=== PATIENT | female | born 1950 | race Caucasian/White ===

== ENCOUNTER 2016-06-23 05:34 | Day surgery (SDC) | payer OTHER ==
[2016-06-23] VITALS (16 sets, daily range): BP systolic 118–154; BP diastolic 72–88; PULSE 58–87; RESP 12–17; O2SAT 94–100
[~2016-06-23] VITALS: Ht 160 cm; Wt 99.4 kg
[2016-06-23] MEDS: Lactated Ringer's 1,000 ML IV SCH ×4 (05:00→21:15)
[~2016-06-23 05:34] MED LIST: ASPI-973 PO; CHOL200047 PO; CeFAZolin Inj 2 GM in IV Premix 1 EACH IV ONE
[2016-06-23] MEDS ORDERED: Glycopyrrolate 0.2 MG/ML 1mL Inj ONE (05:35)
[2016-06-23] MEDS ORDERED: Rocuronium 10 mg/mL 5 mL Inj ONE (05:35)
[2016-06-23] MEDS ORDERED: HYDROmorphone 2 mg/mL Inj ONE (05:35)
[2016-06-23] MEDS ORDERED: fentaNYL-PF 50 mCg/mL 2 mL Inj ONE (05:35)
[2016-06-23] MEDS ORDERED: Dexamethasone 4 mg/mL Inj ONE (05:35)
[2016-06-23] MEDS ORDERED: Remifentanil 1 mg/3 mL Inj ONE (05:35)
[2016-06-23] MEDS ORDERED: Phenylephrine/NS 100 mCg/mL 10 mL Syringe IVPUSH ONE (05:35)
[2016-06-23] MEDS ORDERED: Propofol 10 mg/mL 20 mL Inj ONE (05:35)
[2016-06-23] MEDS ORDERED: MetoCLOpramide 5 mg/mL 2 mL Inj ONE (05:35)
[2016-06-23] MEDS ORDERED: Ondansetron 2 mg/mL 2 mL Inj ONE (05:35)
[2016-06-23] MEDS ORDERED: Neostigmine 1 mg/mL 10 mL Inj ONE (05:35)
[2016-06-23] MEDS ORDERED: CeFAZolin Inj 2 gm / 50mL D5W IV ONE (05:38)
[2016-06-23] MEDS ORDERED: Bupivacaine-MPF 0.25%/EPI 30 mL Inj INFILTRATE ONE (07:45)
[2016-06-23] MEDS ORDERED: Lactated Ringer's 1,000 ML IV SCH (08:47)
[2016-06-23] MEDS ORDERED: Lactated Ringer's 500 ML IV PRN (08:47)
--- NOTE | 2016-06-23 08:47 | PCM.HPANE ---
Patient Data Surgeon Admitting Provider: Attending Provider:Jessica Carson MD Primary Care Physician:Daniel Guthrie Other Provider:Azul Wright Anesthesia Reason for Visit Postmenopausal Bleeding, Endometrial Hyperplasia Ht/WT & BMI Height (Feet): 5 Height (Inches): 3.00 Weight (Kilograms): 96.5 Body Mass Index 37.00 Allergies Coded Allergies: codeine (Verified Allergy, Unknown, UNKNOWN, 12/06/15) Past Anesthesia History Anesthesia History: Denies:: Abnormal Airway, Anesthesia Reactions, Difficult Intubation, Fam Anesthesia Reaction, Fam Malignant Hypertherm, Malignant Hyperthermia Diabetes History Hx Diabetes?: No MRSA MRSA: No Medications Blood Thinner: Aspirin Home Meds Incl Beta Mag: No Reported Medications Cholecalciferol (Vitamin D3) (Vitamin D3)2,000 Unit Capsule2,000 Unit PO DAILY 06/19/16 Aspirin 81 Mg [id number] Mg PO DAILY Ref 0 06/19/16 Discontinued Reported Medications Aspirin 325 Mg [id number] Mg PO WEEKLY #1 BOTTLE 12/06/15 Multivitamin (Multivitamins)1 Each Capsule1 Each PO DAILY 12/06/15 History History of ENT Problems?: No HEENT History: Denies:: Abnormal Airway Cataracts Difficult Intubation Dysphagia Glaucoma Hearing Problem Sinus Problem TMJ Denture Type: None Teeth Condition: Within Normal Limits Hx of Heart Problems?: Yes Cardiovascular History: Positive for:: Edema (PEDAL-OCCAS.) Denies:: AICD Atrial Fibrillation Chest Pain Hypertension Pacemaker Thrombophlebitis (HX OF VARICOSITIES S/P VEIN STRIPPING) Valvular Heart Disease Hx of Respiratory Problem?: No Respiratory History: Denies:: Oxygen Administration Use of C-PAP Machine Hx Neurologic Problems?: No Neurological History: Denies:: CVA Multiple Sclerosis Parkinson's Disease Seizures Hx of GI Problems?: Yes Other GI Pertinent History: hx of umbilical hernia repair with mesh Hx of Problems?: No Genitourinary History: Denies:: Kidney Stones Urinary Tract Infection Female Hx: Denies:: Currently (post alexis) Endometriosis Problems with Breasts? Skin History: Denies:: History Skin Disorders? Pressure Ulcers Hx Musculoskeletal Problems?: No Musculoskeletal History: Denies:: Fibromyalgia Joint Replacement Musculoskeletal Trauma (prior hx of knee arthroscopy) Hx of Psycho/Social Problems?: No Hx Surgeries?: Yes (c sectionx5, vein stripping, umb hernia with mesh, knee scope) Hx Any Other Health Problems?: Yes Other History: Denies:: Cancer Endocrine Disease Hospitalization Thyroid Disease History Blood Transfusions: Denies:: Blood Transfusions Hx Diabetes: No Hx Alcohol Use: NoHx Substance Use: No Smoking Status: Never Smoker Have You Smoked inLast 12 mo: No Stop/Bang S-Snoring: Do You Snore Loudly: No T-Tired: feel tired, fatigued: No O-Obsered: Observed not breath: No P-Blood Pressure: treated: No B- Body Mass Index > 35 kg/m2: Yes A- Age over 50: Yes N- Neck Large Circumference: No G- Gender Male: No JUAN Total Score: 2 Risk Assessment Category Category 1A: Patient has history of documented sleep apnea, and HAS NOT received any narcotic, sedative or anesthesia administration during this stay. Category 1B: Patient has history of documented sleep apnea, and HAS received any narcotic , sedative or anesthesia administration during this stay Category 2: Patient has SUSPECTED Obstructive Sleep Apnea, and HAS received any narcotic , sedative or anesthesia administration during this stay. Category 3: Patient has SUSPECTED Obstructive Sleep Apnea and HAS NOT received narcotic, sedative or anesthesia administration during this stay. Category 4: Outpatient in Procedural Areas with known sleep apnea or who screen positive for High Risk via the STOP/BANG questionnaire. Exam Exam Vital Signs Vital Signs Date Time Temp Pulse Resp B/P Pulse Ox O2 Delivery O2 Flow Rate FiO2 06/23/16 06:02 36 87 14 139/84 96 Room Air General Appearance: Alert, Oriented X3, Cooperative, No Acute Distress HEENT/AIRWAY: MP 2, Neck Movement (FROM, large neck circumference), Mouth Opening (3 FBMO) Lungs: Clear to Auscultation, Normal Air Movement Heart: Exam Unremarkable, Regular Rate/Rhythm, No Murmurs/Rubs/Gallops Meds/Labs/Diagnostics Admission Meds Current Medications Lactated Ringer's (Lr) 1,000 ml @ 120 mls/hr Q8H20M IV Last administered on t 06:05; Start 06/23/16 at 05:00; Stop 06/23/16 at 13:19 Plan Impression Patient chart reviewed, patient interviewed and anesthestic plan with risks, benefits, and alternatives discussed, and informed consent obtained. NPO per Anesth. Guidelines: Yes ASA Physical Status: ASA2 Mod Systemic Disease Anesthetic Plan: GA Bene/Risks/Altern/Consents: Yes HP Complete Prior to Induction: Yes Other Pt wanted the option of going home tonight, so no duramorph spinal. Oliver Croft MD June 23, 2016 06:55
[2016-06-23] MEDS ORDERED: HYDROmorphone 1 mg/mL Inj IVPUSH PRN ×2 (08:50→12:50)
[2016-06-23] MEDS ORDERED: Atropine 0.4 mg/mL Inj IVPUSH PRN (08:50)
[2016-06-23] MEDS ORDERED: EPHEDrine Sulfate 50 mg/mL Inj IVPUSH PRN (08:50)
[2016-06-23] MEDS ORDERED: Ondansetron 2 mg/mL 2 mL Inj IVPUSH PRN ×3 (08:50→21:10)
[2016-06-23] MEDS ORDERED: fentaNYL-PF 50 mCg/mL 2 mL Inj IVPUSH PRN (08:50)
[2016-06-23] MEDS ORDERED: Labetalol 5 mg/mL 4 mL Inj IV PRN (08:50)
[2016-06-23] MEDS ORDERED: Phenylephrine 10,000 mCg/mL Inj IVPUSH PRN (08:50)
[2016-06-23] MEDS ORDERED: MetoCLOpramide 5 mg/mL 2 mL Inj IVPUSH PRN ×3 (08:50→21:10)
[2016-06-23] MEDS ORDERED: Lactated Ringer's 1,000 ML IV ONE ×2 (09:37→14:14)
[2016-06-23] MEDS ORDERED: oxyCODONE-Acetamin 5-325 mg Tablet PO PRN ×2 (12:50→21:15)
[2016-06-23] MEDS ORDERED: diphenhydrAMINE 25 mg Capsule PO PRN (12:50)
--- NOTE | 2016-06-23 12:56 | PCM.DIGYN ---
Surgical Discharge Instruction Dates of Hospitalization Date of Hospital Admission Providers Admitting Physician: Primary Care Physician: Daniel Guthrie Attending Physician: Jessica Carson MD Diet Discharge Diet: No restrictions Activity Discharge Activity-General: Try not to overdue, Balance rest and activity, No lifting >10 pounds for 4-6 weeks, No driving while taking narcotic, Other ( Pelvic rest x6 weeks) Dressing and Incisional Care Dressing Care: Keep dressing clean, dry & intact Hygiene: May shower, NO bathtub, hot tub or whirlpool Additional Instructions Discharge Instructions You have had an uncomplicated laparoscopic hysterectomy, there was a lot of scarring around the bladder from your previous sections and around your belly button from your hernia repair. Because of this I needed to place an extra port along the right upper rib cage. Please call with severe pain, temperature greater than 100.5 degrees, malodorous vaginal discharge, or heavy vaginal bleeding. Follow Up Plan Follow-up Provider (F9): Jessica Carson MD Follow-up appointment: Weeks (2) Call your provider for: Fever, Chills, Shortness of breath, Heavy vaginal bleeding, Increasing pain Jessica Carson MD June 23, 2016 12:56
--- NOTE | 2016-06-23 14:27 | PCM.ANEP1 ---
Post Anesthesia Phase 1 PACU Phase 1 Assessment Vital Signs Vital Signs Date Time Temp Pulse Resp B/P Pulse Ox O2 Delivery O2 Flow Rate FiO2 06/23/16 14:10 84 14 136/76 94 Room Air 06/23/16 13:55 75 15 136/77 97 Room Air 06/23/16 13:40 77 16 123/82 95 Room Air 06/23/16 13:30 68 13 138/82 100 Room Air 06/23/16 13:25 74 12 133/75 100 Simple Mask 10 06/23/16 13:20 76 16 128/83 100 Simple Mask 10 06/23/16 13:15 71 13 129/85 100 Simple Mask 10 06/23/16 13:10 78 12 128/72 100 Simple Mask 10 06/23/16 13:00 83 13 129/83 100 Simple Mask 10 06/23/16 12:50 85 12 118/81 99 Simple Mask 10 06/23/16 12:45 85 13 125/73 99 Simple Mask 10 06/23/16 12:40 85 17 127/79 98 Simple Mask 10 06/23/16 12:35 36.5 83 13 124/83 99 Simple Mask 10 Anesthetic Administered: GA Level of Alertness: Awake, talking POWER's with Equal Strength: Yes Pain: No Nausea or Vomiting: No Cardiovascular Function and Hy: Yes Oxygen Delivery: Simple Mask Lungs: Clear to Auscultation, Normal Air Movement Dermatome Level: Full Sensation Complications: No Follow up Care: No Oliver Croft MD June 23, 2016 14:27
--- NOTE | 2016-06-23 16:05 | OP ---
[address] [address] OPERATIVE REPORT PATIENT: DAVE HERNÁNDEZ : 1950 MR#: [id number] ADMIT: 06/23/2016 JOB ID: [id number] DATE OF SURGERY: 06/23/2016 PREOPERATIVE DIAGNOSIS(ES): Thickened endometrial stripe and complex ovarian cyst. POSTOPERATIVE DIAGNOSIS(ES): Thickened endometrial stripe and complex ovarian cyst. PROCEDURE PERFORMED: Total laparoscopic hysterectomy with bilateral salpingo-oophorectomy and cystoscopy. Lysis of adhesions. SURGEON: Jessica Carson MD. [employer]KER: Rolando Loaiza MD. ANESTHESIA: General endotracheal anesthesia. ESTIMATED BLOOD LOSS: 300 cc. FLUID REPLACEMENT: 2 L of crystalloid. URINE OUTPUT: 300 cc of blood-tinged urine. FINDINGS: Intra-abdominal scarring from her previous five sections, as well as from her umbilical hernia repair. Normal-appearing uterus, enlarged ovaries bilaterally given her postmenopausal status. COMPLICATIONS: None apparent. INDICATIONS: This is a 66-year-old female, who presented to our clinic for management of thickened endometrial stripe and complex-appearing ovarian cyst on ultrasound. She had a history of this previously and had required multiple D and Cs, as well as followup ultrasound. She was frustrated with needing recurrent followup and requested definitive management. After discussing risks, benefits, and alternatives with her, she elected to proceed with the total laparoscopic hysterectomy with bilateral salpingo-oophorectomy with cystoscopy. PROCEDURE: The patient was taken to the operating room on the morning of June 23. She was prepped and draped in the usual sterile fashion for hysterectomy. After general endotracheal anesthesia was administered, bivalve speculum was placed into the vagina and the cervix was then grasped with a tenaculum, and the uterus sounded to 9 cm. It was then serially dilated to allow the VCare uterine manipulator with a small size cup as her cervix was noted to be quite small. Attention was then turned abdominally after the speculum was removed, and due to her previous umbilical hernia repair with possible mesh placement, left upper quadrant entry was completed. After injection with local anesthetic, a 5 mm incision was made in the midclavicular line and after an OG was placed, the Veress needle was then inserted and the abdomen was insufflated with appropriately rising CO2 pressures. The scope was then placed with direct visualization and there was noted to be adhesions from the omentum to the anterior abdominal wall at the area of the umbilicus. Next, a right lower quadrant port was placed after injection of local anesthetic, and a 5 mm incision was made, and a 5 mm port was then placed under direct visualization. The Thunderbeat was then introduced into the abdomen and the adhesions were then taken down using the Thunderbeat ensuring that no bowel was noted within the adhesions. Once this was freed from the anterior abdominal wall, an infraumbilical incision was made after injection of local anesthetic, approximately 1 cm below the umbilicus, and a 5 mm port was then placed under direct visualization. A left lower quadrant port was then placed as well after injection with local and a 5 mm incision was made. This was placed under direct visualization. The abdomen was then explored and she was noted to have extensive scarring from the bladder to the lower uterine segment all the way up almost as high as her round ligaments bilaterally and enlarged ovaries bilaterally. Starting with the left IP ligament, this was grasped and serially cauterized and cut using the Thunderbeat, the ovary from the left pelvic sidewall. The broad ligament was also cauterized and cut and then taking serial bites down the left broad ligament, staying high to avoid the bladder scarring. The uterus was then from the pelvic sidewall. The left uterine arteries were skeletonized as much as was possible and were then cauterized. Attention was then turned to the right side where the right fallopian tube and ovary was initially transected from the uterus by cutting the utero-ovarian ligament, and then cutting laterally up to the IP ligament, at which point the ovary and fallopian tube were and placed into the posterior cul-de-sac. The round ligament was then transected using the Thunderbeat and small bites of the broad ligament where it was noted to be free of scarring from her previous sections was taken until the right sidewall of the uterus was mobilized and the right uterine artery was then cauterized. The bladder was then elevated and using the Thunderbeat the bladder reflection was then taken downward. This required extensive lysis of adhesions due to her large amount of scar tissue that was present and this was continued across the anterior portion of the uterus until meeting the left side. The uterine arteries were then transected using the Thunderbeat and when it was felt that the bladder was reflected downward off of the top of the cervix, the colpotomy incision was then made anteriorly. This was carried around circumferentially until the uterus was entirely from the vagina. The uterus, cervix, left fallopian tube and ovary were then removed en bloc from the vagina followed by the right ovary and fallopian tube that had been transected off of the uterus. The uterus was then sent to Pathology. The abdomen was copiously irrigated and using the V-Loc suture starting in the left cornua of the vaginal cuff a running nonlocking stitch was used of the V-Loc until the vaginal cuff was completely closed. Two more bites of suture were taken after reaching the right apex back towards the midline to ensure adequate closure. The suture was then cut and suture and needle were then removed from the abdomen. After further irrigation, the pelvis is noted to be hemostatic. The Ramirez catheter was then removed from the bladder and cystoscopy was performed. There was noted to be some blood within the Ramirez catheter bag and blood-tinged urine present. Examination with cystoscopy revealed that the bladder as free of any obvious injuries and there were patent ureters with jets noted bilaterally, and after closer inspection, the bleeding was thought to be coming from some mild urethral trauma. The Ramirez catheter was then replaced into the bladder and after this in PACU clear yellow urine was noted. The trocars were then removed from the abdomen. The skin was closed with 4-0 Monocryl and Dermabond was placed on top of these. The patient tolerated this procedure well. Recovered in PACU. All sponge, needle, and instrument counts were correct at the completion of the procedure. There was 90 minutes of lysis of adhesions. NATALIA
[2016-06-24] MEDS: Sodium Chloride LOK Flush 10 mL Syringe IVFLUSH SCH ×2 (00:30→08:30)
[2016-06-24 00:34] VITALS: BP 112/66; PULSE 94; RESP 17; O2SAT 95
[2016-06-24 04:46] VITALS: BP 127/77; PULSE 85; RESP 18; O2SAT 98
[2016-06-24] MEDS: Lactated Ringer's 1,000 ML IV SCH (05:15)
[2016-06-24 07:24] LABS: BASOPHILS % (AUTO) 0.1 % (0-3); EOSINOPHILS % (AUTO) 0.2 % (0-5); MONOCYTES % (AUTO) 9.2 % (4-12); Mean Corpuscular Hemoglobin 26.9 pg (27.0-35.0); NEUTROPHILS % (AUTO) 73.1 % (40-74); Platelet Count 286 bil/L (150-400)
--- NOTE | 2016-06-24 08:21 | DIS ---
[address] [address] DISCHARGE SUMMARY PATIENT: DAVE HERNÁNDEZ : 1950 MR#: [id number] ADMIT: 06/23/2016 JOB ID: [id number] DIS: 06/24/2016 ADMISSION DIAGNOSIS: Thickened endometrial stripe and a complex ovarian cyst. DISCHARGE DIAGNOSIS: Thickened endometrial stripe and a complex ovarian cyst. PROCEDURES PERFORMED: 1. Total laparoscopic hysterectomy with bilateral salpingo-oophorectomy. 2. Cystoscopy. 3. Lysis of adhesions. REASON FOR ADMISSION: This is a 66-year-old female, who presented to our clinic for followup of a thickened endometrial stripe and a complex appearing ovarian cyst. For management of this, she had previously had multiple episodes of postmenopausal bleeding with a thickened endometrial stripe and had required several dilation and curettages in the past. She was frustrated with needing recurrent management for this and requested definitive surgical management. Risks, benefits, alternatives to total laparoscopic hysterectomy with bilateral salpingo-oophorectomy and cystoscopy were discussed and she elected to proceed. HOSPITAL COURSE: The patient was admitted on the morning of the to undergo the above-stated procedure. The surgery went well without any major issues. She did have extensive scarring within her abdomen. Please see the operative report for details regarding this. She initially planned to go home on postoperative day #0 but following the procedure, she had difficulty voiding and so a Ramirez catheter was reinserted and a decision was made to keep the patient overnight for observation. By postoperative day #1, she was tolerating a regular diet without any nausea or vomiting. She was ambulating well on her own. The Ramirez catheter was removed in the morning of postoperative day #1 and she was able to void without any issue. LABORATORY DATA: Collected on postop day one showed a white count of 14.2, hemoglobin of 12.6, and platelets of 286. It was at this point in time that she was noted to be stable for discharge. PHYSICAL EXAMINATION ON THE DAY OF DISCHARGE: This morning her temperature is 36.7, her pulse is 85, her respiratory rate is 18. Her blood pressure is 127/70. She is satting 98% on room air. In general, she is awake, alert, oriented, in no acute distress. Her abdomen is soft. It is appropriately tender. It is mildly distended. Her incisions are clean, dry, intact with Dermabond on top without any erythema or induration noted on them. INSTRUCTIONS AT DISCHARGE: The patient is advised to remain on pelvic rest for six weeks including no tampons, douching, intercourse. She was asked to call with any signs or symptoms of infection including fever greater than 100.5 degrees, severe pain, malodorous vaginal discharge or bleeding greater than one pad per hour. MEDICATIONS AT DISCHARGE: Included Percocet 5/325 one to two tabs p.o. q.4 hours p.r.n. pain. This was given to her in clinic prior to her procedure as well as ibuprofen 800 mg p.o. q.8 hours p.r.n. pain. She will followup in two weeks for a routine postoperative check in our clinic. All questions and concerns of the patient were answered prior to discharge. She was deemed stable for discharge on postoperative day #1.
--- NOTE | 2016-06-26 08:23 | PATH ---
SURGICAL PATHOLOGY Attending Physician:Jessica Carson, CASE STATUS: Signed Out PATIENT NAME: DAVE HERNÁNDEZ PID: [id number] : 1950 DATE COLLECTED:06/23/2016 20:48 SPECIMEN: Uterus +/- tubes/ovaries, except neoplastic, prolapse CLINICAL HISTORY: POST MENOPAUSAL BLEEDING ENDOMETRIAL HYPERPLASIA 1). UTERUS, BILATERAL TUBES AND OVARIES FINAL DIAGNOSIS: 1.UTERUS, BILATERAL FALLOPIAN TUBES AND OVARIES, HYSTERECTOMY AND BSO: ADENOMYOSIS. ENDOMETRIAL POLYPS, NEGATIVE FOR HYPERPLASIA AND ATYPIA. UTERINE INTRAMURAL LEIOMYOMAS. BENIGN PARATUBAL CYSTS. ICD10 CODE N80.0 N84.0 N83.9 GROSS DESCRIPTION: The specimen is received in formalin, labeled with the patient's name, sublabeled as uterus, bilat tubes with right ovary, and consists of a uterus (78 g, 4.3 cm AP, 7.4 cm SI, 4.9 cm ML) with an attached left ovary (2.7 x 1.8 x 1.3 cm) and fimbriated fallopian tube (length-4.5 cm, diameter-0.4 cm) and a detached right ovary (2.7 x 2.2 x 1.5 cm) with an attached fimbriated fallopian tube (length-4.2 cm, diameter-0.5 cm). The cervix (1.8 cm AP, 2.0 cm ML) has a transverse os and patent endocervical canal. The anterior endometrial cavity contains multiple cee-pink rubbery polyps (1.3 x 0.5 x 0.5 cm-2.8 x 1.1 x 0.8 cm). The endometrium (average thickness-0.2 cm) is cee-pink smooth, flat and firm. The myometrium (thickness-2.1 cm) is cee and contains multiple solid firm white whorled homogenous well-circumscribed nodules (0.2 x 0.2 x 0.2 cm-1.5 x 1.4 x 1.2 cm). The serosa is cee smooth and shiny. The ovaries have strauss-yellow smooth shiny bosselated serosa. The parenchyma is strauss-yellow solid and firm corpus albicans identified. The cavities (0.3 cm-1.5 cm) contain brown turbid and clear colorless fluid. The cavity linings are shiny and flat with no excrescences identified. The fallopian tubes have cee smooth shiny serosa with multiple paratubal cysts (0.6 cm-1.7 cm) containing clear colorless fluid and clear peri gelatinous material. The lumens are cee and unremarkable. Section code: (A) anterior cervix; (B) posterior cervix; (C-F) anterior endomyometrium; (G) polyps; (H, I) posterior endomyometrium; ovary, serially sectioned, contracts representative; (J) right ovary, serially sectioned, contracts representative; (K) left ovary, serially sectioned, contracts representative; (L) left fallopian tube, serially sectioned, contracts representative; (M) left fimbria, bivalved, entirely submitted; (N) right fallopian tube, serially sectioned, contracts representative; (O) left fimbria, bivalved, entirely submitted. 06/24/16 JM MICRO DESCRIPTION: See diagnosis. ICD-9 CODES: CPT CODES: 1: 54133 Electronically Signed Out Emily Abbott MD [facility] [address], [place] [address] Technical component performed at [facility], [facility] [address], [address]
== END 2016-06-24 11:30 | disposition home or self-care (01) ==
LOC: SAS 05:34 → OSC 20:31 → SAS 06-24 11:30
PROVIDERS: ATTEND Obstetrics & Gynecology
DX: N80.0 Endometriosis of uterus (principal); N84.0 Polyp of corpus uteri; K66.0 Peritoneal adhesions (postprocedural) (postinfection); N95.0 Postmenopausal bleeding; N83.8 Other noninflammatory disorders of ovary, fallopian tube and broad ligament; R93.8 Abnormal findings on diagnostic imaging of other specified body structures; I83.90 Asymptomatic varicose veins of unspecified lower extremity; E66.3 Overweight; Z68.38 Body mass index [BMI] 38.0-38.9, adult; Z79.82 Long term (current) use of aspirin
CPT/HCPCS: 36415; 58571; 85025; J0690; J1100; J1170; J1885; J2250; J2370; J2405; J2710; J2765; J3010; J7120